=== PATIENT | female | born 1985 | race Caucasian/White ===

== ENCOUNTER → 2018-02-22 | Outpatient (CLI) | payer BC | LOC: COL.LAB 09:13 | DX: Z01.89 Encounter for other specified special examinations (principal) ==

== ENCOUNTER → 2018-05-26 | Outpatient (CLI) | payer BC | LOC: MC.RAD 09:45 | DX: N63.23 Unspecified lump in the left breast, lower outer quadrant (principal); R92.2 Inconclusive mammogram ==

== ENCOUNTER → 2019-04-11 | Outpatient (CLI) | payer BC | LOC: COL.RAD 08:00 | DX: E04.9 Nontoxic goiter, unspecified (principal); R53.83 Other fatigue ==

== ENCOUNTER → 2021-04-28 | Outpatient (CLI) | payer BC | LOC: MC.RAD 15:15 | DX: Z12.31 Encounter for screening mammogram for malignant neoplasm of breast (principal) ==

== ENCOUNTER → 2022-06-24 | Outpatient (CLI) | payer BC ==
--- NOTE | 2022-06-22 08:34 | NUR ---
Left message on machine with instructions.
[~2022-06-24] VITALS: Ht 167.6 cm; Wt 79.5 kg
[~2022-06-24] MED LIST: MASON NATURAL2000 IU PO; NATURAL FISH1200 MG PO; ONE-A-DAY ESSE1 EACH PO; PROAIR HFA0.09 MG/AC IH; SINGULAIR 110 MG/TAB PO; ZYRTEC 10MG10 MG PO
[2022-06-24 10:07] VITALS: BP 117/80; PULSE 69; TEMP 98.4
--- NOTE | 2022-06-24 10:56 | NUR ---
Pt had a negative test. Pt continues to not be comfortable with proceeding with the test. Pt wishes to go ahead and cancel procedure. Procedure canceled. Notified technologist and EU.
== END ==
LOC: COL.RAD 09:45
PROVIDERS: Radiology Diagnostic Radiology
DX: Z53.9 Procedure and treatment not carried out, unspecified reason (principal)

== ENCOUNTER 2022-07-03 07:01 | Outpatient (CLI) | payer BC ==
[~2022-07-03] VITALS: Ht 167.6 cm; Wt 79.9 kg
[2022-07-03] VITALS (7 sets, daily range): BP systolic 106–118; BP diastolic 68–82; PULSE 58–77; TEMP 98.1
[2022-07-03 08:52] LABS: GLUCOSE,CSF 57 mg/dL (40-70); TOTAL PROTEIN,CSF 26 mg/dL (15-45)
[2022-07-03 09:18] LABS: CSF APPEARANCE CLEAR; CSF COLOR COLORLESS
[2022-07-03 09:19] LABS: CSF MONONUCLEAR 0 % (70-100); CSF POLYMORPHONUCLEAR 0 % (0-6); CSF RBC 0 /mm3 (0-0)
--- NOTE | 2022-07-03 09:20 | NUR ---
DC instructions were reviewed with pt and . Both express understanding. Bandaid to LP site remains clean, dry and intact. No c/o headache. Pt does state she feels cold, warm blanket provided for wheelchair ride to 's car. No other complaints at time of discharge. Gait steady.
[2022-07-08 09:19] LABS: ALBUMIN CSF 14.2 mg/dL (<=27.0); ALBUMUN SERUM 4500 mg/dL (())
[2022-07-08 09:39] LABS: CSF IGG/ALBUMIN 0.09 (<=0.21); CSF,IGG 1.3 mg/dL (<=8.1)
[2022-07-08 10:12] LABS: CSF-IGG INDEX 0.53 (<=0.85); IGG,SERUM 756 mg/dL (()); IGG/ALBUMIN SERUM 0.17 (<=0.40)
[2022-07-08 13:41] LABS: CSF OLIG BD INTERPRETATION 0 bands (<2); SE OLIGOCLONAL BANDING 2 bands (())
== END 2022-07-06 13:01 ==
LOC: COL.RAD 07:01
PROVIDERS: Psychiatry & Neurology Neurology
DX: G61.81 Chronic inflammatory demyelinating polyneuritis (principal)